=== PATIENT | male | born 2005 | race Hispanic/Latino ===

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

== ENCOUNTER 2025-01-13 21:09 | Emergency (ER) | payer SELFPAY ==
[~2025-01-13] VITALS: Ht 172.7 cm; Wt 68.0 kg
[~2025-01-13 21:09] MED LIST: NAPROXEN500 MG PO; [UNRECOGNIZED DRUG - OTHER] PO
[2025-01-13 21:51] VITALS: BP 135/68
[2025-01-13 22:02] VITALS: BP 112/72
[2025-01-13] MEDS ORDERED: MAGNESIUM CITRATE 296 ML/BTL PO ONE (22:05)
[2025-01-13] MEDS ORDERED: SODIUM CHLORIDE 0.9% 1,000 ML IV ONE (22:05)
[2025-01-13 22:16] VITALS: BP 125/47
[2025-01-13 22:23] LABS: URINE BILIRUBIN - DIPSTICK Negative (NEGATIVE); URINE BLOOD DIPSTICK Negative (NEGATIVE); URINE GLUCOSE - DIPSTICK Negative (NEGATIVE); URINE KETONE Negative (NEGATIVE); URINE LEUK ESTERASE Negative (NEGATIVE); URINE NITRITE - DIPSTICK Negative (Negative); URINE PH 6.5 (4.5-8.0); URINE PROTEIN - DIPSTICK Negative (NEG-TRACE); URINE SPECIFIC GRAVITY 1.025; URINE UROBILINOGEN - DIPSTICK 0.2 E.U./dL (0.2)
[2025-01-13 22:24] LABS: BASO% 0.5 % (0-3); EOS% 8.3 % (0-8); HEMATOCRIT 40.3 % (39.0-50.0); HEMOGLOBIN 13.3 g/dl (14.0-18.0); IMMATURE GRANULOCYTES 0.1 % (0.0-5.0); LYMPH% 36.7 % (15-41); MEAN CELL VOLUME 92.6 fL CALC (80.0-100.0); MEAN CORPUSCULAR HGB 30.6 pG CALC (26.0-32.0); MONO% 7.4 % (2-13); NEUT# 3.54 thou/uL (1.82-7.42); RED BLOOD COUNT 4.35 mill/uL (4.70-6.10); RED CELL DISTRI WIDTH 12.7 % (11.5-15.5)
[2025-01-13 22:26] LABS: URINE COLOR Yellow
[2025-01-13 22:31] VITALS: BP 118/38
[2025-01-13 22:38] LABS: ALBUMIN 4.3 g/dL (3.2-5.0); BILIRUBIN, TOTAL 0.5 mg/dL (0.2-1.3); CREATININE 1.1 mg/dL (0.7-1.3); POTASSIUM 4.3 mmol/l (3.5-5.1); TOTAL PROTEIN 6.9 g/dL (6.3-8.2)
[2025-01-13 23:19] VITALS: BP 121/73
[2025-01-13] MEDS ORDERED: COLACE100 MG PO (23:23)
[2025-01-13] MEDS ORDERED: MIRALAX17 GM PO (23:23)
[2025-01-13 23:30] VITALS: BP 110/52
== END 2025-01-13 23:30 | disposition home or self-care (01) | DRG 392 ==
LOC: ED 21:09
PROVIDERS: Emergency Medicine
DX: K59.01 Slow transit constipation (principal)